=== PATIENT | male | born 1990 | race Caucasian/White ===

== ENCOUNTER 2020-04-26 20:20 | Emergency (ER) | payer SELFPAY ==
[2020-04-26 20:24] VITALS: BP 170/86; PULSE 102; RESP 16; TEMP 37.3; O2SAT 99
--- NOTE | 2020-04-26 20:33 | ED.GENADUL_ITS ---
Discharge Plan Disposition Patient Disposition: HOME Condition: Good Discharge Details Clinical Impression: Abscess, dental Primary Care Provider: None,None ED Provider: Dorothea Fields Home Meds and New Rx's Prescriptions: New amoxicillin-pot clavulanate [Augmentin] 875-125 mg tablet 1 tab PO BID Qty: 12 RF: 0 Continued prednisone 10 MG tablets,dose pack 10 mg PO DAILY Qty: 42 RF: 0 amoxicillin-pot clavulanate 1 TAB tablet 1 ea PO BID Qty: 20 RF: 0 sulfamethoxazole-trimethoprim [Bactrim DS] 1 EACH tablet 1 ea PO BID Qty: 20 RF: 0 Discharge Instructions Instructions: Amoxicillin/Clavulanate Potassium (By mouth), Dental Abscess (ED) Additional Instructions: Encourage water intake. You may continue with Tylenol and/or ibuprofen as needed for discomfort. Please take the antibiotics as prescribed. Even if symptoms improve, please take the entire course. He will need follow-up with dentist for reevaluation and for permanent repair of this tooth. Attached is a list of local dentist, please call tomorrow to schedule follow-up appointment. Your blood pressure was elevated here. Please follow-up with your primary care in the next 2 weeks have this reevaluated and discussed potential treatment needs. If you develop fever/chills, increased pain, increased swelling or other new/worsening symptoms please seek care urgently once again. Care management will help establish primary care. Medical Decision Making Patient is a pleasant 30-year-old male presents today with chief complaint of left upper dental pain. He reports he has had this dental pain for several months but recently, over the past few days, he has noted increased pain and swelling. He denies any fevers or chills. Patient states he has not been to see a dentist at least 5 years. No radiation of pain. Pain pain worse with eating. On exam, patient appears nontoxic. He is noted to be hypertensive and tachycardic with heart rate of 102. Patient has a focal area of tenderness, swelling and fluctuance noted #13 tooth. Consistent with abscess. No evidence of swelling or discomfort on the lingual side. No posterior oropharynx. No swelling under the tongue. Area seems fairly focal does not appear to have traveled up and face further. Patient and I discussed incision and drainage of his abscess. We discussed risk/benefits as well as expected procedural steps. He was understanding and wished to proceed. Please see procedure note. Patient tolerated this well. Patient will be started on Augmentin. Return cautions were discussed. Advised he will need follow-up with dentist. Patient remains hypertensive at 151/96. List of local dentists given to the patient, I have asked that he that he contact dentist tomorrow. He does not have a local primary care, I have asked care management to help establish this for follow-up regarding his blood pressure. All his questions and concerns were addressed and he is in agreement this plan. HPI General Mode of arrival: ambulatory . Date/Time Provider Initiated Documentation: 04/26/20 20:32 . Limitations to Documentation: no limitations . Information obtained by: patient and RN notes reviewed . History of Present Illness 30 year old M presents to the emergency department with the chief complaint of left upper dental pain, described as severe, with intensity rated at 8. Quality is described as aching, and is localized to the face. Patient reports no radiation. Patient started experiencing this day(s) (has had chronic pain, much worse with swelling recent days) and it has been constant. No relieving factors improve symptom(s), Eating worsens symptoms . Patient notes no other symptoms.; denies fever/chills, headaches and nausea/vomiting. Patient did receive the following treatments prior to arrival, none Related Data Home Medications Medication Instructions Recorded Confirmed prednisone 10 mg PO DAILY #42 tab 10/29/12 12/17/15 amoxicillin-pot clavulanate 1 ea PO BID #20 tab 12/18/15 sulfamethoxazole-trimethoprim 1 ea PO BID #20 tablet 12/18/15 [Bactrim DS] amoxicillin-pot clavulanate 1 tab PO BID #12 tab 04/26/20 [Augmentin] Previous Rx's Medication Instructions Recorded prednisone 10 mg PO DAILY #42 tab 10/29/12 amoxicillin-pot clavulanate 1 ea PO BID #20 tab 12/18/15 sulfamethoxazole-trimethoprim 1 ea PO BID #20 tablet 12/18/15 [Bactrim DS] amoxicillin-pot clavulanate 1 tab PO BID #12 tab 04/26/20 [Augmentin] Allergies Allergy/AdvReac Type Severity Reaction Status Date / Time No Known Allergies Allergy Unverified 12/17/15 22:48 General Stated Complaint: DentalOral JERICA: 4 Review of Systems Constitutional Constitutional: Reports as per HPI, Denies chills, Denies fatigue, Denies fever(s), Denies headache(s) and Denies poor appetite Eyes Eyes: Denies change in vision and Denies irritation ENT Ears, Nose, Mouth, and Throat: Reports as per HPI, Reports dental pain, Denies dysphagia, Denies dizziness, Denies dry mouth, Denies ear discharge, Denies otalgia, Reports facial pain, Denies headache(s), Denies hoarseness, Denies lip swelling, Denies nasal congestion, Denies odynophagia and Denies sore throat Cardiovascular Cardiovascular: Reports as per HPI and Denies chest pain Respiratory Respiratory: Reports as per HPI and Denies cough Gastrointestinal Gastrointestinal: Reports as per HPI, Denies dysphagia, Denies nausea, Denies odynophagia and Denies vomiting Integumentary/Breasts Skin/Breast: Reports as per HPI, Denies erythema, Denies rash and Denies skin pain Neurologic Neurologic: Reports as per HPI, Denies dizziness and Denies headache(s) Endocrine Endocrine: Denies fatigue Allergic/Immunologic Allergic/Immunologic: Denies lip swelling [facility] Social History Smoking/Tobacco Use Status: Current every day Smoking risk assessment performed?: Yes Alcohol Intake: current Alcohol Intake frequency: holidays/special occasions on ly Drug use: Socially Substance use type: marijuana Current gender identity: male Do you feel safe at home: Yes Do you feel safe in your relationship?: Yes Exam Const General: cooperative, healthy appearing, comfortable, no acute distress, well developed and well groomed Nutritional Appearance: average body habitus and well nourished Orientation: alert and awake [facility] Head: normal to inspection, normocephalic and atraumatic Ears: hearing grossly normal bilaterally, external ears normal and TM's normal bilaterally General nose exam: external nose normal and nares normal Face and sinus: normal facial exam, sinuses nontender and face symmetric Mouth: oral mucosae normal, lip normal, tongue normal, moist mucous membranes, no audible dysphonia, no drooling, no muffled voice, no trismus and No restricted motion Teeth and gingiva: dentition normal Teeth image: 1. focal area of swelling, erythema and fluctuance consistent with abcess. No swelling on lingual side. No pain on lingual side. No pain over sinuses Throat: posterior oropharynx normal, tonsils normal and uvula midline Eyes General: appearance normal, both eyes and all related structures Neck Neck: normal visual inspection, full ROM, no lymphadenopathy, supple and no anterior neck swelling Resp Effort & Inspection: normal respiratory effort, able to speak in complete sentences and no respiratory distress Auscultation: clear to auscultation bilaterally, no rales, no rhonchi and no wheezes Cardio Rate: regular rate Rhythm: regular rhythm Heart Sounds: S1 normal and S2 normal Skin General skin exam: no rashes or lesions noted Trauma: no lacerations or abrasions Neuro General: patient alert and patient awake Cognition: normal cognition Speech: speech normal Gait: normal gait Psych Appearance: grossly normal and well kempt Mental Status: mental status grossly normal Speech and Movement: speech and movement normal Course Vital Signs Vital signs: Vital Signs Temperature 37.3 C 04/26/20 20:24 Pulse 102 H 04/26/20 20:24 Respiratory Rate 16 04/26/20 20:24 Blood Pressure 170/86 H 04/26/20 20:24 Pulse Oximetry 99 04/26/20 20:24 Temperature 37.3 C 04/26/20 20:24 Temperature Source Skin 04/26/20 20:24 Pulse 102 H 04/26/20 20:24 Respiratory Rate 16 04/26/20 20:24 Respiratory Effort 04/26/20 20:28 Blood Pressure 170/86 H 04/26/20 20:24 Blood Pressure Position Sitting 04/26/20 20:24 Pulse Oximetry 99 04/26/20 20:24 Oxygen Delivery Method Room Air 04/26/20 20:24 Oxygen Flow Rate 0 04/26/20 20:24 Pain Level 8 04/26/20 20:24 Procedures Abscess I/D Site: Other (dental) Side (if applicable): Left Sedation/analgesia: None Local Anesthetic: Lidocaine 1% Amount of anesthesia used (mL): 1 Technique: Needle Aspiration Amount of fluid expressed (mL): 3 Irrigation: Yes Packing used?: None Complications: Other (none)
[2020-04-26 20:54] VITALS: BP 151/96; PULSE 93; RESP 16; O2SAT 96
[2020-04-26] MEDS: Amoxicillin 875/Clav. 125 TAB PO (20:59)
--- NOTE | 2020-04-27 04:38 | NUR.NOTE ---
Nursing Note: referral to care management for elevated b/p & pcp needed @ 0435 04/27/2020 libl
== END 2020-04-26 21:01 | disposition home or self-care (01) ==
PROVIDERS: Emergency Provider Physician Assistant
DX: R68.84 Jaw pain (principal); R22.0 Localized swelling, mass and lump, head; K04.7 Periapical abscess without sinus; R03.0 Elevated blood-pressure reading, without diagnosis of hypertension
CPT/HCPCS: 41800